=== PATIENT | female | born 1990 | race Caucasian/White ===

== ENCOUNTER 2022-03-15 10:14 | Outpatient (CLI) | payer OTHER | END 2022-03-15 10:15 | disposition home or self-care (01) | LOC: CSHULT 10:14 | PROVIDERS: ATTEND Family Medicine | DX: O09.892 Supervision of other high risk pregnancies, second trimester (principal); Z3A.23 23 weeks gestation of pregnancy | CPT/HCPCS: 76805 ==

== ENCOUNTER 2022-04-15 21:11 | Day surgery (SDC) | payer OTHER ==
[2022-04-15] MEDS ORDERED: hydrALAZINE 20 MG/ML VIAL SLOW IVP PRN (21:47)
[2022-04-15] MEDS ORDERED: metroNIDAZOLE 500 MG TAB PO SCH (22:00)
[2022-04-15 22:25] VITALS: BMI 25.7
== END 2022-04-16 01:19 | disposition home or self-care (01) ==
LOC: CSHLD/OP 21:11
PROVIDERS: ATTEND Family Medicine
DX: O26.893 Other specified pregnancy related conditions, third trimester (principal); R10.30 Lower abdominal pain, unspecified; R79.89 Other specified abnormal findings of blood chemistry; O99.613 Diseases of the digestive system complicating pregnancy, third trimester; K76.0 Fatty (change of) liver, not elsewhere classified; O99.891 Other specified diseases and conditions complicating pregnancy; O23.593 Infection of other part of genital tract in pregnancy, third trimester; Z3A.29 29 weeks gestation of pregnancy
CPT/HCPCS: 76705; 99282

== ENCOUNTER 2022-05-23 16:40 | Day surgery (SDC) | payer OTHER ==
[2022-05-23 17:14] VITALS: BMI 26.9
[2022-05-23] MEDS ORDERED: hydrALAZINE 20 MG/ML VIAL SLOW IVP PRN (17:46)
== END 2022-05-23 19:30 | disposition home or self-care (01) ==
LOC: CSHLD/OP 16:40
PROVIDERS: ATTEND Family Medicine
DX: O36.8130 Decreased fetal movements, third trimester, not applicable or unspecified (principal); Z3A.34 34 weeks gestation of pregnancy; O36.5930 Maternal care for other known or suspected poor fetal growth, third trimester, not applicable or unspecified
CPT/HCPCS: 76819; 99282

== ENCOUNTER 2022-06-04 11:11 | Inpatient (IN) | payer BC, OTHER ==
[2022-06-04] MEDS ORDERED: Promethazine HCl 25 MG/ML VIAL IM PRN (11:26)
[2022-06-04] MEDS ORDERED: Famotidine/PF 20 mg/2ml Vial SLOW IVP PRN (11:26)
[2022-06-04] MEDS ORDERED: Acetaminophen 500 MG TAB PO PRN (11:26)
[2022-06-04] MEDS ORDERED: Bicitra 30 ML UDCUP PO PRN (11:26)
[2022-06-04] MEDS ORDERED: hydrALAZINE 20 MG/ML VIAL SLOW IVP PRN (11:26)
[2022-06-04] MEDS ORDERED: Ondansetron PF 4 MG/2 ML Vial IVP PRN (11:26)
[2022-06-04] MEDS ORDERED: CEFAZOLIN 2 GM in Sodium Chloride 0.9% 100 ML IVPB SCH (11:30)
[2022-06-04 12:09] VITALS: BMI 27.6
[2022-06-04 12:23] LABS: Hemoglobin 10.2 g/dL (12.0-15.5); Mean Corpuscular HGB CONC 34.1 g/dL (32.0-36.0); Mean Corpuscular Volume 96.8 fl (81.6-98.3); Mean Platelet Volume 10.4 fl (7.4-10.4); Platelet Count 309 10x3/uL (150-450); RBC Distribution Width 13.5 % (11.5-14.5); Red Blood Cell (RBC) Count 3.09 10x6/uL (3.90-5.03); White Blood Cell (WBC) Count 10.9 10x3/uL (3.5-10.5)
[2022-06-04] MEDS: Betamet Acet/Betamet Na Ph 30 MG/5 ML VIAL IM SCH (12:27)
[2022-06-04] MEDS: Lactated Ringer's 1,000 ML IV SCH (12:28)
[2022-06-04 12:47] LABS: HBSAg Index 0.17 S/CO (0-0.99); Hep B Surf Ag Non-Reactive S/CO (NonReactive)
[2022-06-04 12:48] LABS: Syphilis Antibody Nonreactive (Nonreactive); Syphilis Antibody Index 0.04 S/CO (<1.00 Non-Reactive)
[2022-06-04 14:25] LABS: SARS-CoV-2 NAA Rapid Test Not Detected (NotDetected)
[2022-06-04 14:44] LABS: Amphetamine Not Detected (NotDetected); Barbiturates Screen Not Detected (NotDetected); Benzodiazepine Screen Not Detected (NotDetected); Cocaine Metabolite Screen Not Detected (NotDetected); Methadone Not Detected (NotDetected); Methamphetamine Not Detected (NotDetected); Opiate Screen Not Detected (NotDetected); Oxycodone Screen Not Detected (NotDetected); Phencyclidine (PCP) Not Detected (NotDetected); THC/Cannabinoid Screen Not Detected (NotDetected); Tricyclic Screen Not Detected (NotDetected)
[2022-06-05] MEDS: Betamet Acet/Betamet Na Ph 30 MG/5 ML VIAL IM SCH (05:58)
[2022-06-05] MEDS ORDERED: CEFAZOLIN 2 GM VIAL ONE (10:27)
[2022-06-05] MEDS ORDERED: Famotidine/PF 20 mg/2ml Vial ONE (10:27)
[2022-06-05] MEDS ORDERED: Ketorolac Tromethamine 30 MG/ML VIAL IVP PRN (10:38)
[2022-06-05] MEDS ORDERED: Promethazine HCl 25 MG/ML VIAL IM PRN ×2 (10:38→16:08)
[2022-06-05] MEDS ORDERED: Meperidine HCl/PF 25 MG/ML VIAL SLOW IVP PRN (10:38)
[2022-06-05] MEDS ORDERED: Ondansetron PF 4 MG/2 ML Vial IVP PRN ×2 (10:38→16:08)
[2022-06-05] MEDS ORDERED: Ondansetron HCl/PF 4 MG/2 ML Vial IVP PRN (10:38)
[2022-06-05] MEDS ORDERED: Naloxone HCl 0.4 mg/ml Vial IV PRN (10:38)
[2022-06-05] MEDS ORDERED: diphenhydrAMINE 50 MG/ML VIAL IVP PRN (10:38)
[2022-06-05] MEDS ORDERED: Promethazine HCl 25 MG SUPP PR PRN (10:38)
[2022-06-05] MEDS ORDERED: Naloxone HCl 0.4 mg/ml Vial IVP PRN ×2 (10:38)
[2022-06-05] MEDS ORDERED: Moisturizing Cream (Eucerin) 113 GM JAR TOP PRN (10:38)
[2022-06-05] MEDS ORDERED: Fentanyl 100 MCG/2 ML VIAL SLOW IVP PRN (10:38)
[2022-06-05] MEDS: Lactated Ringer's 1,000 ML IV SCH ×3 (10:40→22:25)
[2022-06-05] MEDS ORDERED: Ketorolac Tromethamine 30 MG/ML VIAL IVP SCH (10:45)
[2022-06-05] MEDS ORDERED: Communication Order-Pharmacy FS SCH (10:45)
[2022-06-05] MEDS ORDERED: Ondansetron PF 4 MG/2 ML Vial ONE (10:57)
[2022-06-05] MEDS ORDERED: Metoclopramide HCl 10 MG/2 ML VIAL ONE (10:57)
[2022-06-05] MEDS ORDERED: Oxytocin 10 UNITS/ML VIAL ONE (10:58)
[2022-06-05] MEDS ORDERED: Ketorolac Tromethamine 30 MG/ML VIAL ONE (10:58)
[2022-06-05] MEDS ORDERED: Phenylephrine 40 MG/NS 250 ML 250 ML ONE (10:58)
[2022-06-05] MEDS ORDERED: Morphine PF 10 MG/10 ML VIAL ONE (11:00)
[2022-06-05] MEDS ORDERED: diphenhydrAMINE 50 MG/ML VIAL ONE (11:37)
[2022-06-05] MEDS ORDERED: Meperidine HCl/PF 25 MG/ML VIAL ONE (12:54)
[2022-06-05] MEDS ORDERED: Fentanyl 100 MCG/2 ML VIAL ONE (13:59)
[2022-06-05] MEDS ORDERED: NS w/ Oxytocin 30 units 500 ML ONE (14:16)
[2022-06-05] MEDS ORDERED: Bisacodyl 10 MG SUPP PR PRN (16:08)
[2022-06-05] MEDS ORDERED: Boostrix 0.5 ML (Tdap) VIAL (>/=7 yrs of age) IM ONE (16:08)
[2022-06-05] MEDS ORDERED: HYDROcodone/Acetaminophen 5/325 mg Tablet PO PRN (16:08)
[2022-06-05] MEDS ORDERED: hydrALAZINE 20 MG/ML VIAL SLOW IVP PRN (16:08)
[2022-06-05] MEDS ORDERED: Lanolin Ointment 7 GM TUBE TOP PRN (16:08)
[2022-06-05] MEDS ORDERED: diphenhydrAMINE 25 MG CAP PO PRN (16:08)
[2022-06-05] MEDS: Ketorolac Tromethamine 30 MG/ML VIAL IVP SCH (18:53)
[2022-06-05] MEDS: Ferrous Sulfate 325 MG TAB PO SCH (21:21)
[2022-06-05] MEDS: Docusate 100 MG CAP PO SCH (21:22)
[2022-06-06] MEDS: Ketorolac Tromethamine 30 MG/ML VIAL IVP SCH ×2 (00:13→05:49)
[2022-06-06 03:51] LABS: Hemoglobin 8.4 g/dL (12.0-15.5); Mean Corpuscular HGB CONC 34.1 g/dL (32.0-36.0); Mean Corpuscular Hemoglobin 33.1 pg (27.0-33.0); Mean Corpuscular Volume 96.9 fl (81.6-98.3); Mean Platelet Volume 9.4 fl (7.4-10.4); Platelet Count 290 10x3/uL (150-450); RBC Distribution Width 13.6 % (11.5-14.5); Red Blood Cell (RBC) Count 2.54 10x6/uL (3.90-5.03); White Blood Cell (WBC) Count 14.6 10x3/uL (3.5-10.5)
[2022-06-06] MEDS: Prenatal Vitamin 1 TAB PO SCH (08:06)
[2022-06-06] MEDS: Docusate 100 MG CAP PO SCH ×2 (08:06→21:22)
[2022-06-06] MEDS: Simethicone Chewable 80 MG TAB PO PRN ×3 (08:21→20:33)
[2022-06-06] MEDS: HYDROcodone/Acetaminophen 5/325 mg Tablet PO PRN ×4 (08:21→20:28)
[2022-06-06] MEDS: Ferrous Sulfate 325 MG TAB PO SCH ×2 (09:20→21:22)
[2022-06-06] MEDS: Ibuprofen 800 MG TAB PO SCH ×2 (13:48→21:22)
[2022-06-07] MEDS: HYDROcodone/Acetaminophen 5/325 mg Tablet PO PRN ×6 (00:26→22:24)
[2022-06-07] MEDS: Ibuprofen 800 MG TAB PO SCH ×3 (05:22→21:15)
[2022-06-07] MEDS: Ferrous Sulfate 325 MG TAB PO SCH ×2 (09:24→21:15)
[2022-06-07] MEDS: Prenatal Vitamin 1 TAB PO SCH (09:24)
[2022-06-07] MEDS: Docusate 100 MG CAP PO SCH ×2 (09:24→21:15)
[2022-06-07] MEDS: Simethicone Chewable 80 MG TAB PO PRN ×3 (13:28→21:15)
[2022-06-08] MEDS: HYDROcodone/Acetaminophen 5/325 mg Tablet PO PRN ×4 (02:38→17:53)
[2022-06-08] MEDS: Ibuprofen 800 MG TAB PO SCH ×2 (06:28→14:51)
[2022-06-08 08:02] VITALS: BP 119/66; TEMP 98.1
[2022-06-08] MEDS: Simethicone Chewable 80 MG TAB PO PRN ×2 (08:09→17:53)
[2022-06-08] MEDS: Docusate 100 MG CAP PO SCH (08:09)
[2022-06-08] MEDS: Prenatal Vitamin 1 TAB PO SCH (08:09)
[2022-06-08] MEDS: Ferrous Sulfate 325 MG TAB PO SCH (08:09)
[2022-06-08] MEDS ORDERED: Guaifenesin DM 100-10/5 ML UDCUP PO PRN (15:11)
== END 2022-06-08 18:00 | disposition home or self-care (01) | DRG 788 ==
LOC: CSHLD 11:11 → CSHPP 06-05 16:07
PROVIDERS: ADMIT Family Medicine; ATTEND Family Medicine
PROC: 10D00Z1 Extraction of Products of Conception, Low, Open Approach (ICD-10-PCS; principal; 2022-06-05)
PROC: 3E0334Z Introduction of Serum, Toxoid and Vaccine into Peripheral Vein, Percutaneous Approach (ICD-10-PCS; 2022-06-05)
DX: O36.5930 Maternal care for other known or suspected poor fetal growth, third trimester, not applicable or unspecified (principal); O26.893 Other specified pregnancy related conditions, third trimester; Z67.41 Type O blood, Rh negative; Z37.0 Single live birth; Z20.822 Contact with and (suspected) exposure to COVID-19; Z3A.36 36 weeks gestation of pregnancy; O34.211 Maternal care for low transverse scar from previous cesarean delivery; Z87.891 Personal history of nicotine dependence
CPT/HCPCS: 36415; 51702; 80306; 85027; 85461; 86780; 86850; 86870; 86900; 86901; 87340; 88307; 90384; 96372; J0702; J1200; J1885; J2175; J2274; J2405; J2590; J2765; J3010; J3490; J7120; S0028; U0002